=== PATIENT | male | born 1970 | race Caucasian/White ===

== ENCOUNTER 2016-06-22 20:58 | Emergency (ER) | payer BC ==
[~2016-06-22] VITALS: Ht 167.6 cm; Wt 75.0 kg
[~2016-06-22 20:58] MED LIST: CHERRY; CHERRY EXTRACT; INDOCIN50 MG PO; MOBIC 7.5MG7.5 MG PO; NAPROSYN 2250 MG/TAB PO; NORCO 325 MG-51 TAB PO; PERCOCET 325 MG1 TA2 PO; PREDNISONE20 MG PO; ULTRAM 50MG TAB50 MG PO
[2016-06-22 20:59] VITALS: BP 168/100; PULSE 74; TEMP 98.4
[2016-06-22] MEDS ORDERED: NORCO 325 MG-51 TAB PO (21:18)
== END 2016-06-22 21:32 | disposition home or self-care (01) ==
LOC: COL.ER 20:58
DX: M10.9 Gout, unspecified (principal); F17.210 Nicotine dependence, cigarettes, uncomplicated

== ENCOUNTER 2016-08-18 20:03 | Emergency (ER) | payer BC ==
[~2016-08-18] VITALS: Ht 167.6 cm; Wt 70.5 kg
[2016-08-18] MEDS ORDERED: INDOCIN50 MG PO ×2 (20:46→21:15)
[2016-08-18] MEDS ORDERED: NORCO 325 MG-51 TAB PO (20:46)
[2016-08-18 21:03] VITALS: BP 152/94; PULSE 81; TEMP 100.8
== END 2016-08-18 21:12 | disposition home or self-care (01) ==
LOC: COL.ER 20:03
DX: M10.071 Idiopathic gout, right ankle and foot (principal); F17.210 Nicotine dependence, cigarettes, uncomplicated
CPT/HCPCS: J1885

== ENCOUNTER 2016-12-07 16:52 | Emergency (ER) | payer SELFPAY ==
[~2016-12-07] VITALS: Ht 167.6 cm; Wt 72.7 kg
[2016-12-07 16:55] VITALS: BP 167/95; TEMP 98.9
[2016-12-07] MEDS ORDERED: NORCO 325 MG-7.1 TAB PO (17:15)
[2016-12-07 17:48] VITALS: PULSE 98
== END 2016-12-07 17:48 | disposition home or self-care (01) ==
LOC: COL.ER 16:52
DX: S46.911A Strain of unspecified muscle, fascia and tendon at shoulder and upper arm level, right arm, initial encounter (principal); W19.XXXA Unspecified fall, initial encounter; Z98.890 Other specified postprocedural states

== ENCOUNTER 2017-01-24 20:32 | Emergency (ER) | payer SELFPAY ==
[~2017-01-24] VITALS: Ht 167.6 cm; Wt 73.5 kg
[~2017-01-24 20:32] MED LIST changes: +NORCO 325 MG-7.1 TAB PO
[2017-01-24 20:46] VITALS: BP 155/95; TEMP 99.6
[2017-01-24] MEDS ORDERED: NAPROSYN 2250 MG/TAB PO (21:35)
[2017-01-24] MEDS ORDERED: PREDNISONE10 MG PO (21:46)
[2017-01-24 22:00] VITALS: PULSE 84
== END 2017-01-24 22:00 | disposition home or self-care (01) ==
LOC: COL.ER 20:32
DX: M10.9 Gout, unspecified (principal); F17.210 Nicotine dependence, cigarettes, uncomplicated
CPT/HCPCS: J7512

== ENCOUNTER 2017-03-21 22:21 | Emergency (ER) | payer SELFPAY ==
[~2017-03-21] VITALS: Ht 167.6 cm; Wt 72.7 kg
[~2017-03-21 22:21] MED LIST changes: +PREDNISONE10 MG PO
[2017-03-21 22:27] VITALS: BP 181/93; TEMP 98.9
[2017-03-21] MEDS ORDERED: INDOCIN 25MG CA25 MG PO (22:30)
[2017-03-22 00:32] VITALS: PULSE 64
== END 2017-03-22 00:32 | disposition home or self-care (01) ==
LOC: COL.ER 22:21
DX: M10.9 Gout, unspecified (principal); F17.210 Nicotine dependence, cigarettes, uncomplicated

== ENCOUNTER 2017-05-11 20:29 | Emergency (ER) | payer SELFPAY ==
[~2017-05-11] VITALS: Ht 167.6 cm; Wt 72.7 kg
[~2017-05-11 20:29] MED LIST changes: +INDOCIN 25MG CA25 MG PO
[2017-05-11 20:35] VITALS: TEMP 99.3
[2017-05-11] MEDS ORDERED: PREDNISONE20 MG PO (22:20)
[2017-05-11 22:32] VITALS: BP 155/99; PULSE 93
== END 2017-05-11 22:33 | disposition home or self-care (01) ==
LOC: COL.ER 20:29
DX: M10.9 Gout, unspecified (principal); F17.210 Nicotine dependence, cigarettes, uncomplicated
CPT/HCPCS: J7512

== ENCOUNTER 2017-10-12 18:43 | Emergency (ER) | payer SELFPAY ==
[~2017-10-12] VITALS: Ht 167.6 cm; Wt 78.4 kg
[2017-10-12 18:53] VITALS: BP 164/97; TEMP 99.1
[2017-10-12] MEDS ORDERED: PREDNISONE20 MG PO (20:12)
[2017-10-12 20:31] VITALS: PULSE 92
== END 2017-10-12 20:32 | disposition home or self-care (01) ==
LOC: COL.ER 18:43
DX: M10.9 Gout, unspecified (principal); F17.210 Nicotine dependence, cigarettes, uncomplicated; Z88.2 Allergy status to sulfonamides; Z88.8 Allergy status to other drugs, medicaments and biological substances; Z79.52 Long term (current) use of systemic steroids
CPT/HCPCS: J7512

== ENCOUNTER 2017-12-12 22:42 | Emergency (ER) | payer SELFPAY ==
[~2017-12-12] VITALS: Ht 167.6 cm; Wt 80.9 kg
[2017-12-12 22:46] VITALS: BP 137/99; TEMP 98.8
[2017-12-12] MEDS ORDERED: PERCOCET 325 MG1 TA2 PO (23:11)
[2017-12-12] MEDS ORDERED: PREDNISONE20 MG PO (23:11)
[2017-12-12 23:21] VITALS: PULSE 98
== END 2017-12-12 23:21 | disposition home or self-care (01) ==
LOC: COL.ER 22:42
DX: M10.9 Gout, unspecified (principal); M54.9 Dorsalgia, unspecified; G89.29 Other chronic pain; F17.210 Nicotine dependence, cigarettes, uncomplicated
CPT/HCPCS: J7512

== ENCOUNTER 2018-01-05 22:17 | Emergency (ER) | payer SELFPAY ==
[~2018-01-05] VITALS: Ht 167.6 cm; Wt 75.0 kg
[2018-01-05 22:19] VITALS: TEMP 99.3
[2018-01-05 23:48] VITALS: BP 143/107
[2018-01-05] MEDS ORDERED: PREDNISONE20 MG PO (23:58)
[2018-01-06] MEDS ORDERED: CHERRY EXTRACT PO (00:12)
[2018-01-06 00:20] VITALS: PULSE 80
== END 2018-01-06 00:20 | disposition home or self-care (01) ==
LOC: COL.ER 22:17
DX: M10.9 Gout, unspecified (principal); F17.210 Nicotine dependence, cigarettes, uncomplicated
CPT/HCPCS: J7512

== ENCOUNTER 2018-01-11 20:28 | Emergency (ER) | payer SELFPAY ==
[~2018-01-11] VITALS: Ht 167.6 cm; Wt 75.0 kg
[~2018-01-11 20:28] MED LIST changes: +CHERRY EXTRACT PO
[2018-01-11 20:31] VITALS: TEMP 99.7
[2018-01-11 21:18] VITALS: BP 144/98
[2018-01-11] MEDS ORDERED: MOBIC 7.5MG7.5 MG PO (21:20)
[2018-01-11 22:15] VITALS: PULSE 106
== END 2018-01-11 22:15 | disposition home or self-care (01) ==
LOC: COL.ER 20:28
DX: M10.9 Gout, unspecified (principal); F17.210 Nicotine dependence, cigarettes, uncomplicated; Z88.2 Allergy status to sulfonamides; Z88.8 Allergy status to other drugs, medicaments and biological substances

== ENCOUNTER 2018-05-30 15:27 | Emergency (ER) | payer SELFPAY ==
[~2018-05-30] VITALS: Ht 167.6 cm; Wt 75.0 kg
[2018-05-30 15:37] VITALS: BP 168/101; PULSE 110; TEMP 99.1
[2018-05-30] MEDS ORDERED: PREDNISONE20 MG PO (15:57)
[2018-05-30] MEDS ORDERED: NORCO 325 MG-51 TAB PO (15:57)
== END 2018-05-30 16:36 | disposition home or self-care (01) ==
LOC: COL.ER 15:27
DX: M10.9 Gout, unspecified (principal); F17.210 Nicotine dependence, cigarettes, uncomplicated; Z88.2 Allergy status to sulfonamides

== ENCOUNTER 2019-01-29 19:16 | Emergency (ER) | payer SELFPAY ==
[~2019-01-29] VITALS: Ht 167.6 cm; Wt 68.2 kg
[2019-01-29 19:26] VITALS: TEMP 99.5
[2019-01-29 20:54] LABS: BASO % 0.3 % (0.0-2.0); EOS # 0.3 (0.0-0.7); EOS % 2.6 % (0-4.0); GRAN # 7.2 (1.4-6.5); GRAN % 61.7 % (42.2-75.2); HEMATOCRIT 37.3 % (42.0-52.0); HEMOGLOBIN 11.6 g/dl (13.5-18.0); LYMPH # 2.9 (1.2-3.4); LYMPH % 24.4 % (20.0-51.0); MEAN CELL VOLUME 88 fl (80.0-100.0); MEAN CORPUSCULAR HEMOGLOBIN 27 pg (27.0-31.0); MEAN CORPUSCULAR HGB CONC 31 g/dl (33.0-37.0); MEAN PLATELET VOLUME 9.6 fl (7.4-10.4); MONO # 1.2 (0.1-0.6); MONO % 10.2 % (1.7-9.3); PLATELET COUNT 519 K/mm3 (130-400); RED BLOOD COUNT 4.25 M/mm3 (4.20-5.60); REDCELL DISTRIBUTION WIDTH-CV 14.1 % (11.5-14.5)
[2019-01-29 21:09] LABS: ALANINE AMINOTRANSFERASE < 6 U/L (21-72); ALKALINE PHOSPHATASE 81 U/L (50-136); ANION GAP 10 mmol/L (7-16); AST,SGOT 19 U/L (15-37); BILIRUBIN,TOTAL 0.3 mg/dL (0.0-1.0); BLOOD UREA NITROGEN 15 mg/dL (9-20); C-REACTIVE PROTEIN 0.8 mg/dL (0.0-0.9); CALCIUM 9.4 mg/dL (8.4-10.2); CARBON DIOXIDE 28 mmol/L (22-30); CHLORIDE 103 mmol/L (98-107); CREATININE, serum 0.78 (0.66-1.25); GLUCOSE 96 mg/dL (74-106); POTASSIUM 4.2 mmol/L (3.4-5.0); SODIUM 141 mmol/L (137-145); TOTAL PROTEIN 7.4 gm/dL (6.4-8.2)
[2019-01-29 21:24] LABS: ERYTHROCYTE SEDIMENTATION RATE 28 mm/hr (0-15)
[2019-01-29] MEDS ORDERED: CEPHALEXIN500 M1 PO (22:08)
[2019-01-29] MEDS ORDERED: PERCOCET 325 MG1 TA2 PO (22:14)
[2019-01-29 22:19] VITALS: BP 159/105; PULSE 99
== END 2019-01-29 22:29 | disposition home or self-care (01) ==
LOC: COL.ER 19:16
PROVIDERS: Emergency Medicine
DX: L03.115 Cellulitis of right lower limb (principal); M10.9 Gout, unspecified
CPT/HCPCS: J2405; J3010; J7030

== ENCOUNTER 2019-12-07 10:44 | Emergency (ER) | payer MEDICAID ==
[~2019-12-07] VITALS: Ht 167.6 cm; Wt 84.5 kg
[~2019-12-07 10:44] MED LIST changes: +CEPHALEXIN500 M1 PO
[2019-12-07 11:01] VITALS: BP 169/107; PULSE 98; TEMP 99.1
[2019-12-07] MEDS ORDERED: ZOLOFT 50MG50 MG PO (11:21)
[2019-12-07] MEDS ORDERED: TOPROL XL 50MG50 MG PO (11:22)
[2019-12-07] MEDS ORDERED: ROXICODONE 55 MG/TAB PO (11:23)
[2019-12-07] MEDS ORDERED: MEDROL 4MG DOSPA4 MG PO (11:31)
[2019-12-07] MEDS ORDERED: NORCO 325 MG-51 TAB PO (11:31)
[2019-12-07] MEDS ORDERED: ANUSOL HC CREAM30 GM TP (11:33)
== END 2019-12-07 11:55 | disposition home or self-care (01) ==
LOC: COL.ER 10:44
DX: M25.571 Pain in right ankle and joints of right foot (principal); M79.89 Other specified soft tissue disorders; I10 Essential (primary) hypertension; M10.9 Gout, unspecified; F17.210 Nicotine dependence, cigarettes, uncomplicated